=== PATIENT | male | born 1950 | race Caucasian/White ===

== ENCOUNTER 2016-12-28 10:16 | Outpatient (CLI) | payer MEDICARE, OTHER ==
[2014-08-25 09:36] VITALS: BP 152/92
[2016-12-28 11:07] LABS: eGFR (African) > 60; eGFR (Non-African) > 60
== END 2016-12-28 10:17 ==
LOC: LAB 10:16
PROVIDERS: ATTEND Family Medicine
DX: I10 Essential (primary) hypertension (principal)
CPT/HCPCS: 36415; 80053; 80061

== ENCOUNTER 2018-09-02 09:38 | Outpatient (CLI) | payer MEDICARE, OTHER ==
[2014-08-25 09:36] VITALS: BP 152/92
[2018-09-02 12:18] LABS: eGFR (Non-African) > 60
== END 2018-09-02 09:40 ==
LOC: LAB 09:38
PROVIDERS: ATTEND Physician Assistant
DX: E78.2 Mixed hyperlipidemia (principal); I10 Essential (primary) hypertension
CPT/HCPCS: 36415; 80053; 80061

== ENCOUNTER 2019-08-10 07:46 | Outpatient (CLI) | payer MEDICARE, OTHER ==
[2014-08-25 09:36] VITALS: BP 152/92
--- NOTE | 2019-08-10 08:21 | Diagnostic Imaging Report ---
PATIENT MR#: [id number] PATIENT PATIENT NAME: JUDE ZAMORA DATE OF : 1950 REFERRING PHYSICIAN: Alexandr Lim EXAM DATE: 08/10/2019 ACCESSION NUMBER: [id number] EXAM DESCRIPTION: HAND 3 VIEWS OR MORE Examination: Plain film left hand History: MIDDLE FINGER OF LT HAND PAIN, PT STATES GOING ON FOR X8 MONTHS Comparison exams: None available Findings: 3 views of the left hand demonstrates articular degenerative changes. No fracture. No disl ocation. Likely old proximal phalanx 5th digit fracture. No soft tissue abnormality. Impression: Articular degenerative changes. No acute osseous abnormality Read by: Dr. Madhu Skinner Transcribed by: Transcribed Date: Electronically signed by: Dr. Madhu Skinner Date signed: 08/10/2019 8:21:07 AM
[2019-08-10 08:59] LABS: HDL 65 mg/dL (>40); eGFR (Non-African) > 60
== END 2019-08-10 07:48 ==
LOC: LAB 07:46
PROVIDERS: ATTEND Family Medicine
DX: I73.9 Peripheral vascular disease, unspecified (principal); M65.332 Trigger finger, left middle finger
CPT/HCPCS: 36415; 73130; 80053; 80061

== ENCOUNTER 2019-08-12 13:18 | Outpatient (CLI) | payer MEDICARE, OTHER ==
[2014-08-25 09:36] VITALS: BP 152/92
[~2019-08-12 13:18] MED LIST: BUPIVACAINE HCL 0.25% (2.5MG/ML) PF 10ML VIAL IV ONE; Lidocaine 1% 5ml 10 MG/ML VIAL ONE; methylPREDNISolone ACETATE 40 MG/ML VIAL IM ONE
--- NOTE | 2019-09-03 10:56 | CONSULTATION REPORT ---
DATE OF CONSULTATION: 08/12/2019 CHIEF COMPLAINT: Triggering, left long finger. HISTORY OF PRESENT ILLNESS: This 69-year-old white male was seen for recommendations regarding treatment of a triggering left long finger. He says he has had the issue present for an indeterminate timeframe, although it has been at least a few months. He says it sometimes gives him pain when he lifts things and extends his fingers. It has been catching. Sometimes it has been worse than others. He sees Dr. Alexandr Lim for routine primary care needs, and I note that this patient has had a stroke in 2013 which resulted in the need for placement of carotid stent on the right. He says that he initially actually had symptoms right side, but then it settled into left-sided symptomatology. This has all resolved, and he says he is now only taking a couple of baby aspirins daily. He also takes lisinopril 20 mg p.o. daily. He has not had any specific treatment for the left long finger triggering. He has talked to some other individuals who seemed to have a worse condition than he does, with multiple triggering fingers. ALLERGIES: He reports allergy to penicillin. He is not sure of the reaction, but he says he has been told by his parents since childhood that he is allergic to penicillin. SOCIAL HISTORY: The patient does indicate that he stopped smoking two months ago, prior to which he smoked for many years. PAST MEDICAL HISTORY: He does report hypertension diagnosis in the past, but he says he sometimes does not have high blood pressure. In any event, he does take a statin as well. The patient notes hypercholesterolemia. 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 Negative respiratory, gastrointestinal, psychiatric review of systems. Positive genitourinary for frequent urination. Positive neurologic for TIA in 2013. Endocrine positive for hypercholesterolemia. Negative diabetes. PHYSICAL EXAMINATION: Vital signs are recorded revealing pulse 89, blood pressure 130/71, respiratory rate 18, temperature 97.7, oxygen saturation 96% on room air. The patient currently rates his pain as 0/10. HEENT: Normocephalic. Neck is supple. Lungs clear to percussion bilaterally. Cardiovascular: Regular rate and rhythm. Abdomen is soft, nontender. Extremities: The patient does have triggering of the left long finger with palpable mild enlargement at the distal flexor surface of the palm in line with the third ray. The patient does note some mild tenderness there, and he says it has been worse than it is today, but still is bothersome. He does report a history of a previous extensor tendon injury in that hand involving one of his fingers in the past from a belt on a machine. He said that was repaired and he did well with it. He does have some mild limitation in range of motion in a couple of the digits apart from the triggering finger, but he says neither of these have bothered him over the years. The patient does have good capillary refill distally in all the fingers and thumbs of both hands. Pulses are present and symmetrical, radial aspect of the wrists bilaterally. He has intact light touch sensation in the long finger of the left hand. He is right hand dominant. X-RAYS: The patient does have plain film x-rays for review of left hand obtained on 08/10/2019. These left hand x-rays reveal no acute bony abnormalities. IMPRESSION: 1. Triggering left long finger. 2. Hypercholesterolemia. 3. History of transient ischemic attack/CVA with resulting necessity for carotid stent placement in 2013. 4. Recent nicotine cessation (a couple of months ago) with long-standing smoking history prior to that. 5. The patient takes aspirin 162 mg daily. 6. Hypercholesterolemia. RECOMMENDATIONS: Options were discussed with the patient. I sterilely injected the triggering long finger. The patient is advised that trigger release can be performed if injection is unsuccessful or if recurrence is noted after injection in the weeks or months that follow. He is to recheck with me on an as needed basis. Thank you for the opportunity to evaluate this pleasant gentleman and perform initial treatment for his triggering left long finger. All of his questions were answered to his voiced satisfaction. He voices satisfaction with today's visit. PROCEDURE NOTE: I sterilely injected the triggering tendon sheath with 10 mg of Depo-Medrol and 1 mL of 0.25% plain Marcaine with 1 mL of 1% plain Xylocaine sterilely using a 25-gauge needle. The patient tolerated the procedure well. Gold Patterson MD /[employer] [id number] Job #[id number] MTDD
== END 2019-08-12 14:25 ==
LOC: ORHTO 13:18
PROVIDERS: ATTEND Orthopaedic Surgery
DX: M65.332 Trigger finger, left middle finger (principal); E78.00 Pure hypercholesterolemia, unspecified; Z79.82 Long term (current) use of aspirin; Z86.73 Personal history of transient ischemic attack (TIA), and cerebral infarction without residual deficits; Z95.828 Presence of other vascular implants and grafts
CPT/HCPCS: 20550; 99202; G0463; J1030; J3490